=== PATIENT | female | born 1960 | race African-American/Black ===

== ENCOUNTER 2019-03-28 13:49 | Emergency (ER) | payer SELFPAY ==
--- NOTE | 2019-03-28 14:10 | ED Physician Documentation ---
Lower Extremity Problem - HISTORIAN Historian: patient - HPI Chief Complaint: Lower Extremity Problem Additional Information: 58 year old female presents with c/o left knee discomfort. She states that she may have twisted it when she turned on Wednesday while walking [place]. She states that she has had right knee replacement in the past and has been compensating with the left. She has a set of crutches that she uses and occasionally uses a cane. She states that she does not have insurance so she cannot see her doctor; however she is in the process of getting Medicaid. Location of Injury: L knee Onset: days ago (3 days ago) Timing: still present Duration: constant Recent Injury: No (turned/twisted wrong) Where: other (churned) Severity: mild Quality: pain, tenderness Exacerbated By: walking Relieved By: rest Associated Symptoms: denies: chest pain, shortness of breath - ROS CONST: no problems MS/SKIN/LYMPH: none CVS/RESP: none GI/: none EYES/ENT: none NERUO/PSYCH: difficulty walking - PAST HX Past History: other (right knee replacement) PE Risk Factors: hypertension Other History: cardiac disease, hyperlipidemia, hypertension Surgeries/Procedures: knee surgery, hysterectomy Immunizations: UTD Allergies/Adverse Reactions: Allergies Allergy/AdvReac Type Severity Reaction Status Date / Time atorvastatin [From Lipitor] Allergy Severe Rash Verified 03/28/19 14:07 hydrocodone [From Vicodin] Allergy Severe Rash Verified 03/28/19 14:07 propoxyphene AdvReac Nausea/Vomi Verified 03/28/19 14:07 [From Darvocet-N] ting Home Medications: Ambulatory Orders Medication Instructions Recorded Aspirin EC [Ecotrin] 81 mg PO DAILY 03/28/19 Carvedilol [Coreg] 6.25 mg PO DAILY 03/28/19 Lisinopril [Prinivil] 10 mg PO DAILY 03/28/19 - SOCIAL HX Smoking History: less than 1 pack/day Alcohol Use: none Drug Use: none - FAMILY HX Family History: none - VITAL SIGNS Vital Signs: Vital Signs Temp Pulse Resp BP Pulse Ox 98.3 F 92 H 16 136/103 98 03/28/19 13:49 03/28/19 14:45 03/28/19 14:45 03/28/19 14:45 03/28/19 14:45 - REVIEWED ASSESSMENTS Nursing Assessment Reviewed: Yes Vitals Reviewed: Yes ED Results Lab/Radiology - Radiology Radiology Impressions: Left knee History: Knee pain status post fall AP, lateral and sunrise views of the left knee demonstrate osteophytes along the medial and lateral femoral condyles. There is mild narrowing of patellofemoral compartment joint space. Medial and lateral compartment joint space is maintained. There is a small suprapatellar joint effusion. Impression: Degenerative findings as described. Small suprapatellar joint effusion but no evidence for acute fracture or dislocation. Electronically signed on Mar 28, 2019 2:23:37 PM BIOSECURITY OFFICER by: Judy Santiago - Orders Orders: ED Orders Category Date Time Status Andrew Wrap Affected Extremity 1T Care 03/28/19 14:33 Active KNEE 3 VIEWS [RAD] Stat Exams 03/28/19 Completed Lower Extremity Problem - EXAM General Appearance: no distress Hips: bilateral hip: non-tender, normal inspection, normal range of motion Legs: bilateral: non-tender, normal inspection, normal range of motion, no evidence of injury Knees: left: pain Ankle: bilateral: non-tender, normal inspection, normal range of motion, no evidence of injury Foot: bilateral foot: non-tender, normal inspection, normal range of motion, no evidence of injury Neuro/Tendon: normal sensation, normal motor functions EENT: eye inspection normal, ENT inspection normal, pharynx normal RESPIRATORY: breath sounds normal CVS: heart sounds normal JOINT: limited ROM, painful (left knee) VASCULAR: no vascular compromise, pulses full/equal NEURO/PSYCH: oriented X3, motor nml, sensation nml, mood/affect nml, cognition normal SKIN: warm/dry, normal color Discharge Clincal Impression: Effusion of left knee Referrals: Primary Doctor,No [Primary Care Provider] - 2 Days Additional Instructions: Wear andrew wrap Rest, elevate, Ice Alternate Ibuprofen and Tylenol May use Icy hot, bengay, biofreeze, salonpas Try to follow up with PCP ELDER Condition: Good Disposition: 01 HOME, SELF-CARE Decision to Admit: NO Decision Time: 18:00
[2019-03-28 14:15] VITALS: BP 136/103
--- NOTE | 2019-03-28 14:28 | Diagnostic Imaging Report ---
PATIENT MR#: [id number] PATIENT PATIENT NAME: EH YEBOAH DATE OF : 1960 REFERRING PHYSICIAN: Meggan Mascorro EXAM DATE: 03/28/2019 ACCESSION NUMBER: [id number] EXAM DESCRIPTION: KNEE 3 VIEWS Left knee History: Knee pain status post fall AP, lateral and sunrise views of the left knee demonstrate osteophytes along the medial and lateral f emoral condyles. There is mild narrowing of patellofemoral compartment joint space. Medial and lateral compartment asia int space is maintained. There is a small suprapatellar joint effusion. Impression: Degenerative findings as described. Small suprapatellar joint effusion but no evidence for acute fracture or dislocation. Read by: Dr. Judy Santiago Transcribed by: Transcribed Date: Electronically signed by: Dr. Judy Santiago Date signed: 03/28/2019 2:27:35 PM
== END 2019-03-28 14:38 | disposition home or self-care (01) ==
LOC: ED 13:49
DX: M25.462 Effusion, left knee (principal)
CPT/HCPCS: 73562; 99282